=== PATIENT | female | born 1990 | race Caucasian/White ===

== ENCOUNTER → 2023-05-06 13:55 | Outpatient (REF) | payer BC, SELFPAY | LOC: HWRAD 13:55 | PROVIDERS: ATTENDING PHYSICIAN Urology; FAMILY PHYSICIAN Nurse Practitioner Primary Care | DX: N30.10 Interstitial cystitis (chronic) without hematuria (principal); M62.89 Other specified disorders of muscle | CPT/HCPCS: 76830; 76856 ==

== ENCOUNTER → 2023-08-29 09:09 | Outpatient (REF) | payer BC, SELFPAY | LOC: HWRCS 09:09 | PROVIDERS: ATTENDING PHYSICIAN Nurse Practitioner Primary Care | DX: R07.89 Other chest pain (principal) | CPT/HCPCS: 93306 ==